=== PATIENT | female | born 1960 | race Caucasian/White ===

== ENCOUNTER → 2018-03-29 | Outpatient (REF) | payer SELFPAY | PROVIDERS: ATTEND Family Medicine | DX: M79.605 Pain in left leg (principal) ==

== ENCOUNTER → 2018-03-29 | Outpatient (CLI) | payer SELFPAY ==
--- NOTE | 2018-03-29 17:01 | RADIOLOGY IMAGING REPORT ---
FACILITY: [facility] [place] PATIENT NAME: Latosha Chaudhry : 1960 MR: [id number] V: [id number] EXAM DATE: ORDERING PHYSICIAN: NARINDER ZAMORA TECHNOLOGIST: Location: [facility] Patient: Latosha Chaudhry : 1960 Visit/Account:[id number] Date of Sevice: 03/29/2018 EXAMINATION: Left Lower Extremity Venous Ultrasound HISTORY: Left leg pain. TECHNIQUE: Ultrasound evaluation of the left lower extremity veins was performed with color and spec tral Doppler and compression views. COMPARISON: None. FINDINGS: Exam is positive for DVT in the left leg. Partially occlusive thrombus is present along the mid and d istal left popliteal vein, with thrombus extending inferiorly into the deep calf veins including the anterior tibial, posterior tibial, peroneal veins. The left common femoral, femoral, and proximal profunda femoral veins are patent and compressible, wi thout evidence of intraluminal thrombus. The visualized upper greater saphenous vein is patent and co mpressible. IMPRESSION: Positive exam for DVT in the left leg. Thrombus is present along the left popliteal vein, extending i nferiorly into the visualized deep calf veins. Findings were discussed with NARINDER ZAMORA at 03/29/2018 4:56 PM. Report Dictated By: Cale De La Rosa MD at 03/29/2018 4:45 PM Report E-Signed By: Cale De La Rosa MD at 03/29/2018 4:57 PM WSN:[id number]
[2018-03-29 17:18] LABS: PLATELET COUNT, AUTOMATED 207 K/uL (150-450)
[2018-03-29 17:52] LABS: INR 0.98
== END ==
LOC: US 15:00
PROVIDERS: ATTEND Family Medicine
DX: I82.432 Acute embolism and thrombosis of left popliteal vein (principal)
CPT/HCPCS: 36415; 82040; 82247; 82310; 82374; 82435; 82565; 82947; 84075; 84132; 84155; 84295; 84450; 84460; 84520; 85025; 85610; 85730

== ENCOUNTER → 2018-04-22 | Outpatient (REF) | payer SELFPAY ==
[2018-04-22 14:24] LABS: INR 1.3
== END ==
LOC: ZZSENDIN 13:53
PROVIDERS: ATTEND Family Medicine
DX: I80.209 Phlebitis and thrombophlebitis of unspecified deep vessels of unspecified lower extremity (principal)
CPT/HCPCS: 85610

== ENCOUNTER → 2018-09-13 | Outpatient (REF) | payer SELFPAY ==
[2018-09-13 16:59] LABS: PLATELET COUNT, AUTOMATED 348 K/uL (150-450)
== END ==
PROVIDERS: ATTEND Family Medicine
DX: R10.9 Unspecified abdominal pain (principal); M54.5 Low back pain; R50.9 Fever, unspecified
CPT/HCPCS: 82040; 82247; 82310; 82374; 82435; 82565; 82947; 84075; 84132; 84155; 84295; 84450; 84460; 84520; 85025